=== PATIENT | male | born 1975 | race African-American/Black ===

== ENCOUNTER 2017-05-27 15:57 | Emergency (ER) | payer OTHER ==
[~2017-05-27] VITALS: Ht 190.5 cm; Wt 104.3 kg
[2017-05-27 19:53] VITALS: BP 137/73
== END 2017-05-27 19:53 | disposition home or self-care (01) ==
LOC: ED 15:57
DX: S83.91XA Sprain of unspecified site of right knee, initial encounter (principal); S83.92XA Sprain of unspecified site of left knee, initial encounter; S80.02XA Contusion of left knee, initial encounter; W11.XXXA Fall on and from ladder, initial encounter; Y93.89 Activity, other specified; Y99.8 Other external cause status; Y92.89 Other specified places as the place of occurrence of the external cause
CPT/HCPCS: Q0092